=== PATIENT | female | born 1985 | race Two or more races ===

== ENCOUNTER → 2024-03-11 | Outpatient (CLI) | payer BC, SELFPAY ==
--- NOTE | 2024-03-11 13:00 | XR_ITS ---
Examination: Pelvic ultrasound, transabdominal, complete Technique: Transabdominal ultrasound of the pelvis performed using grayscale imaging Date and time of exam: March 11, 2024 1346 hours INDICATIONS: Left pelvic pain swelling irregular menses 2 years FINDINGS: Uterus 9.8 x 5.4 x 6.5 cm Uterine calcifications No uterine mass Endometrial stripe 0.4 cm Right ovary 4.3 x 3.0 x 2.5 cm arterial flow small follicles Left ovary 4.9 x 2.7 x 3.8 cm arterial flow 18 x 17 mm cyst Dilated left fallopian tube measuring up to 18 mm IMPRESSION: No discrete uterine mass or intrauterine gestation Left hydrosalpinx
== END | disposition home or self-care (01) ==
PROVIDERS: PCP Student in an Organized Health Care Education/Training Program; Referring Provider Student in an Organized Health Care Education/Training Program; Visit Provider Student in an Organized Health Care Education/Training Program
DX: N70.11 Chronic salpingitis (principal)
CPT/HCPCS: 76856